=== PATIENT | female | born 1930 | race Caucasian/White ===

== ENCOUNTER 2018-09-15 15:17 | Inpatient (IN) | payer BC, MEDICARE ==
[2018-09-15 15:33] LABS: #Eosinphils 0.1 thou/uL (0.0-0.7); #Lymphocytes 1.6 thou/uL (1.20-3.40); #Monocytes 0.6 thou/uL (0.11-0.59); %Basophils 0.1 % (0.0-1.0); %Eosinophils 1.2 % (0.0-10.0); %Lymphocytes 30.7 % (21.0-51.0); %Monocytes 10.7 % (0.0-10.0); %Neutrophils 57.3 % (42.0-75.0); Hemoglobin 11.2 g/dL (12.0-16.0); Mean Corpuscular HGB CONC 32.1 g/dL (32.0-36.0); Mean Corpuscular Hemoglobin 29.5 pg (27.0-31.0); Mean Corpuscular Volume 91.8 fL (78.0-98.0); Mean Platelet Volume 8.9 fL (7.4-10.4); Platelet Count 128 thou/uL (130-400); RBC Distribution Width 12.2 % (11.5-14.5); White Blood Cell (WBC) Count 5.2 thou/uL (4.8-10.8)
[2018-09-15 15:39] LABS: INR-International Normal Ratio 1.4; PTT 29.2 SEC (22.9-36.1); Prothrombin Time 16.7 SEC (12.0-14.7)
[2018-09-15] MEDS ORDERED: Heparin 10,000 UNITS/1 ML VIAL ONE (15:45)
[2018-09-15] MEDS ORDERED: Iopamidol 370 76% 50 ML VIAL FS ONE (15:47)
[2018-09-15] MEDS ORDERED: Iopamidol 370 76% 100 ML VIAL ONE (15:47)
[2018-09-15 15:54] LABS: Anion Gap 12 mmol/L (10-20); BUN (Urea Nitrogen) 10 mg/dL (9.8-20.1); Calc. Creatinine Clearance 0 mL/min (70-130); Carbon Dioxide 20 mmol/L (23-31); Chloride 110 mmol/L (98-107); Estimated GFR-MDRD 61; Potassium 3.4 mmol/L (3.5-5.1); Sodium 139 mmol/L (136-145)
[2018-09-15 15:55] LABS: ALT (SGPT) 11 U/L (8-55); AST (SGOT) 16 U/L (5-34); Albumin 3.2 g/dL (3.4-4.8); Alkaline Phosphatase 60 U/L (40-150); Bilirubin, Total 0.7 mg/dL (0.2-1.2); Calcium 8.3 mg/dL (7.8-10.44); Globulin 1.8 g/dL (2.4-3.5); Glucose 116 mg/dL (83-110)
[2018-09-15] MEDS ORDERED: Ondansetron PF 4 MG/2 ML Vial ONE ×2 (16:00→17:08)
[2018-09-15] MEDS ORDERED: DOPamine 400 MG/D5W 250 ML 250 ML ONE (16:02)
[2018-09-15] MEDS ORDERED: Clopidogrel Bisulfate 300 MG TAB ONE (16:02)
[2018-09-15] MEDS ORDERED: Adenosine 6 MG/2 ML VIAL ONE (16:03)
[2018-09-15] MEDS ORDERED: Verapamil 5 MG/2 ML VIAL ONE (16:03)
[2018-09-15] MEDS ORDERED: Nitroglycerin 100MG/250ML BOT 250 ML ONE (16:04)
[2018-09-15] MEDS ORDERED: Amiodarone 150 MG/3 ML VIAL ONE (16:14)
--- NOTE | 2018-09-15 16:31 | RAD ---
ONE VIEW CHEST: 09/15/18 COMPARISON: 09/06/07. HISTORY: STEMI. FINDINGS: There is atherosclerosis of the aorta. Upper normal cardiac silhouette. Pulmonary vessels and hilum are normal. Costophrenic angles are clear. No masses or consolidation. No pneumothorax or osseous abn ormalities. IMPRESSION: 1. Atherosclerosis. 2. Upper normal cardiac silhouette. POS: [facility]
[2018-09-15] MEDS ORDERED: traMADol HCl 50 MG TAB PO PRN (16:40)
[2018-09-15] MEDS ORDERED: Acetaminophen/Codeine 30-300mg Tablet PO PRN (16:40)
[2018-09-15] MEDS ORDERED: Milk Of Magnesia 30 ML UDCUP PO PRN (16:40)
[2018-09-15] MEDS ORDERED: Clopidogrel Bisulfate 300 MG TAB PO SCH (16:45)
[2018-09-15] MEDS ORDERED: Sodium Chloride 0.9% 1,000 ML IV SCH (16:45)
[2018-09-15] MEDS ORDERED: Lidocaine 1% (PF) 30 ML VIAL ONE (17:08)
[2018-09-15 17:35] VITALS: BMI 24.2
[2018-09-15] MEDS ORDERED: DOPamine 400 MG/D5W 250 ML 250 ML IVPB SCH ×2 (19:15→22:45)
[2018-09-15] MEDS: Atorvastatin Calcium 40 MG TAB PO SCH (20:32)
[2018-09-15] MEDS ORDERED: cloNIDine 0.1 MG TAB PO PRN (22:27)
[2018-09-15] MEDS ORDERED: Amlodipine 5 MG TAB PO SCH (22:30)
[2018-09-15] MEDS ORDERED: Aspirin Chewable 81 MG TAB PO SCH (22:45)
[2018-09-16 04:13] LABS: #Lymphocytes 0.8 thou/uL (1.20-3.40); #Monocytes 0.4 thou/uL (0.11-0.59); #Neutrophils 4.3 thou/uL (1.40-6.50); %Basophils 0.2 % (0.0-1.0); %Eosinophils 0.1 % (0.0-10.0); %Monocytes 7.5 % (0.0-10.0); %Neutrophils 78.2 % (42.0-75.0); Hemoglobin 11.3 g/dL (12.0-16.0); Mean Corpuscular HGB CONC 32.5 g/dL (32.0-36.0); Mean Corpuscular Hemoglobin 29.8 pg (27.0-31.0); Mean Corpuscular Volume 91.8 fL (78.0-98.0); Mean Platelet Volume 9.3 fL (7.4-10.4); Platelet Count 123 thou/uL (130-400); RBC Distribution Width 12.2 % (11.5-14.5); Red Blood Cell (RBC) Count 3.78 mill/uL (4.20-5.40); White Blood Cell (WBC) Count 5.5 thou/uL (4.8-10.8)
[2018-09-16 04:32] LABS: ALT (SGPT) 66 U/L (8-55); AST (SGOT) 88 U/L (5-34); Albumin 3.4 g/dL (3.4-4.8); Alkaline Phosphatase 78 U/L (40-150); Anion Gap 12 mmol/L (10-20); BUN (Urea Nitrogen) 10 mg/dL (9.8-20.1); Bilirubin, Total 0.8 mg/dL (0.2-1.2); Calc. Creatinine Clearance 51 mL/min (70-130); Calcium 8.6 mg/dL (7.8-10.44); Carbon Dioxide 22 mmol/L (23-31); Chloride 108 mmol/L (98-107); Estimated GFR-MDRD 69; Globulin 1.9 g/dL (2.4-3.5); Glucose 93 mg/dL (83-110); Protein, Total 5.3 g/dL (6.0-8.3); Sodium 138 mmol/L (136-145)
--- NOTE | 2018-09-16 08:08 | PDOC.CTH ---
Cardiology Progress Note - Subjective Doing well. No current complaints. Pt is NSR. - Objective Vital Signs Temp Pulse BP 09/16/18 04:00 98.1 F 09/16/18 00:00 97.6 F 09/15/18 22:39 57 L 159/69 H Weight 136 lb 10.986 oz 09/15/18 09/16/18 09/17/18 06:59 06:59 06:59 Intake Total 480 480 Output Total 1440 35 Balance -960 445 - Physical Examination General/Neuro: alert & oriented x3, NAD Neck: carotid US brisk, no JVD present Lungs: CTA, unlabored respirations Heart: PMI normal, RRR Abdomen: NT/ND, soft Extremities: + femoral B - Telemetry Telemetry Rhythm: SR - Labs Result Diagrams: 09/16/18 03:45 09/16/18 03:45 Troponin/CKMB Troponin I Less than 0.010 ng/mL (< 0.028) 09/15/18 15:22 - Assessment/Plan AMI CAD s/p stent to RCA afib hypotension Improved BP stable Not pacer dependent; will remove d/c central line and arterial lines Transfer to floor after BR
--- NOTE | 2018-09-16 10:24 | CON ---
DATE OF CONSULTATION: 09/16/2018 CONSULTING PHYSICIAN: Carter Dugan MD. REASON FOR CONSULTATION: ICU protocol. Following encompassed 50 minutes of time, of that time, greater than 50% spent with the patient and/or on the patient's unit in the hospital. HISTORY OF PRESENT ILLNESS: The patient is an 87-year-old female, who was apparently sitting on a bench at [employer] yesterday when she passed out. She was brought into the ER hypotensive. I think there were also some issues with bradycardia. She was taken to the label stitcher with the presumptive diagnosis of a myocardial infarction. She had a cardiac catheterization and stent placed. She also had a transvenous pacemaker placed. Currently, she is lying in bed quietly. She has no acute complaints. She is no longer having chest pain. She has no shortness of breath. PAST MEDICAL HISTORY: 1. Coronary artery disease. 2. Hypertension. PAST SURGICAL HISTORY: Cardiac catheterization. SOCIAL HISTORY: Nonsmoker. Does not consume alcohol. ALLERGIES: SHE DENIED ANY ALLERGIES TO ME, BUT AN ER NOTE INDICATES THAT SHE MAYBE ALLERGIC TO PENICILLIN. FAMILY MEDICAL HISTORY: Unremarkable. MEDICATIONS: Prior to admission, she takes some type of antihypertensive at home, but does not know what would it is. Current inpatient medications; 1. Tylenol No.3. 2. Lipitor. 3. Catapres. 4. Dopamine. 5. Tramadol. REVIEW OF SYSTEMS: Twelve-point review of systems is otherwise negative. PHYSICAL EXAMINATION: VITAL SIGNS: Temperature 98.1, pulse 68, blood pressure 121/43, O2 saturation 98%. GENERAL: She awakens easily. She is alert. She is in no distress. HEENT: Pupils are reactive. Sclerae anicteric. Oropharynx is clear. NECK: No bruits. No thyromegaly. LUNGS: Clear to auscultation without wheezing or rhonchi. CARDIAC: S1 and S2 regular without audible murmur. ABDOMEN: Soft, nontender to palpation. EXTREMITIES: She has a right groin introducer and arterial line in place. EXTREMITIES: No clubbing, cyanosis, or edema. LABORATORY DATA: Sodium 138, potassium 4, chloride 108, CO2 of 22, BUN 10, creatinine 0.7, glucose 93, AST 88, ALT 66. White blood cell count 5.5, hemoglobin 11, hematocrit 34.8, and platelet count 123. ASSESSMENT: 1. Myocardial infarction. 2. Status post symptomatic bradycardia. 3. Hypertension. PLAN: She has a stable Pulmonary Critical Care status at this time. I would assume her arterial line. A transvenous pacer will be removed later today. I do not see anything to add to her excellent care. We will be available for care as needed. Job ID: [id number]
[2018-09-16] MEDS ORDERED: Hydrocortisone Sod Succ/PF 100 mg/2 ml Vial IVP SCH (13:45)
[2018-09-16] MEDS: diphenhydrAMINE 25 MG CAP PO PRN (16:26)
--- NOTE | 2018-09-16 17:01 | EKG ---
Test Reason : Blood Pressure : / mmHG Vent. Rate : 051 BPM Atrial Rate : 227 BPM P-R Int : 000 ms QRS Dur : 092 ms QT Int : 466 ms P-R-T Axes : 000 023 115 degrees QTc Int : 429 ms Atrial fibrillation with slow ventricular response with premature ventricular or aberrantly conducted complexes ST elevation consider inferior injury or acute infarct * ACUTE OR * Consider right ventricular involvement in acute inferior infarct Abnormal ECG Confirmed by HOMERO BLACKBURN, ASHELY ([id number]), publications editor MICHELLE GTZ ([id number]) on 09/16/2018 5:01:09 PM Referred By: Confirmed By:ASHELY VALENTIN MD
[2018-09-16] MEDS: Atorvastatin Calcium 40 MG TAB PO SCH (20:33)
[2018-09-17] MEDS ORDERED: Acetaminophen/Codeine 30-300mg Tablet PO PRN (07:56)
[2018-09-17] MEDS ORDERED: Zolpidem Tartrate 5 MG TAB PO PRN (07:56)
[2018-09-17] MEDS ORDERED: Nitroglycerin 0.4 MG TAB (25 Tab Bottle) SL PRN (07:56)
[2018-09-17] MEDS ORDERED: Milk Of Magnesia 30 ML UDCUP PO PRN (07:56)
[2018-09-17] MEDS ORDERED: cloNIDine 0.1 MG TAB PO PRN (07:56)
[2018-09-17] MEDS ORDERED: Morphine 2 MG/ML SYRINGE SLOW IVP PRN (08:13)
[2018-09-17] MEDS ORDERED: Carvedilol 6.25 MG TAB PO SCH (09:00)
[2018-09-17] MEDS: Aspirin 81 mg Enteric Coated Tablet PO SCH (09:13)
[2018-09-17] MEDS: Clopidogrel Bisulfate 75 MG TAB PO SCH (09:14)
[2018-09-17] MEDS: Lisinopril 2.5 MG TAB PO SCH (09:14)
[2018-09-17] MEDS: Carvedilol 3.125 MG TAB PO SCH ×2 (09:14→20:06)
--- NOTE | 2018-09-17 11:49 | PDOC.CTH ---
Cardiology Progress Note - Subjective Patient with c/o significant chest wall pain with coughing. No pain at rest. No SOB. Daughter mentions she's tired from cardiac rehab and being up to chair. - Objective Vital Signs Temp Pulse Resp BP Pulse Ox 09/17/18 07:42 98.4 F 72 18 150/65 H 94 L 09/17/18 04:00 98.6 F 75 18 150/65 H 96 Weight 147 lb 4.301 oz 09/16/18 09/17/18 09/18/18 06:59 06:59 06:59 Intake Total 480 1710 Output Total 1440 965 Balance -960 745 - Physical Examination General/Neuro: alert & oriented x3 Neck: no JVD present Lungs: CTA Heart: RRR Abdomen: NT/ND Extremities: other: (no edema) - Telemetry Telemetry Rhythm: SR; pSVT - Labs Result Diagrams: 09/16/18 03:45 09/16/18 03:45 Troponin/CKMB Troponin I Less than 0.010 ng/mL (< 0.028) 09/15/18 15:22 - Assessment/Plan 1. s/p acute inferior STEMI 2. s/p PCI/DCS-RCA 3. CAD 4. Paroxysmal AF 5. VT/VF? during PCI (s/p Amio and multiple defibs) 6. PSVT Stable. Coreg started today. Will monitor SVT on bblockers. Morphine PRN chest wall pain. Continue rehab. On Plavix/ASA/statin/bblocker. EF 50-55% on ECHO with inferior wall hypokinesis.
[2018-09-17] MEDS: diphenhydrAMINE 25 MG CAP PO PRN (20:05)
[2018-09-17] MEDS: Atorvastatin Calcium 40 MG TAB PO SCH (20:05)
[2018-09-18 05:45] LABS: ALT (SGPT) 36 U/L (8-55); AST (SGOT) 35 U/L (5-34); Alkaline Phosphatase 66 U/L (40-150); Anion Gap 9 mmol/L (10-20); BUN (Urea Nitrogen) 13 mg/dL (9.8-20.1); Bilirubin, Total 0.9 mg/dL (0.2-1.2); Calc. Creatinine Clearance 45 mL/min (70-130); Calcium 8.5 mg/dL (7.8-10.44); Carbon Dioxide 24 mmol/L (23-31); Chloride 106 mmol/L (98-107); Estimated GFR-MDRD 57; Glucose 97 mg/dL (83-110); Sodium 135 mmol/L (136-145)
[2018-09-18 05:46] LABS: #Eosinphils 0.6 thou/uL (0.0-0.7); #Lymphocytes 0.6 thou/uL (1.20-3.40); #Monocytes 0.3 thou/uL (0.11-0.59); #Neutrophils 8.2 thou/uL (1.40-6.50); %Basophils 0.1 % (0.0-1.0); %Eosinophils 6.2 % (0.0-10.0); %Lymphocytes 6.5 % (21.0-51.0); %Monocytes 2.8 % (0.0-10.0); %Neutrophils 84.3 % (42.0-75.0); Mean Corpuscular HGB CONC 32.8 g/dL (32.0-36.0); Mean Corpuscular Hemoglobin 30.1 pg (27.0-31.0); Mean Corpuscular Volume 91.8 fL (78.0-98.0); Mean Platelet Volume 9.5 fL (7.4-10.4); Platelet Count 127 thou/uL (130-400); RBC Distribution Width 12.4 % (11.5-14.5); Red Blood Cell (RBC) Count 3.99 mill/uL (4.20-5.40); White Blood Cell (WBC) Count 9.7 thou/uL (4.8-10.8)
[2018-09-18] MEDS: Lisinopril 2.5 MG TAB PO SCH (09:48)
[2018-09-18] MEDS: Aspirin 81 mg Enteric Coated Tablet PO SCH (09:48)
[2018-09-18] MEDS: Clopidogrel Bisulfate 75 MG TAB PO SCH (09:48)
[2018-09-18] MEDS: Carvedilol 3.125 MG TAB PO SCH (09:48)
[2018-09-18 12:00] VITALS: TEMP 97.6
--- NOTE | 2018-09-18 13:41 | HP ---
DATE OF CONSULTATION: 09/15/2018 CHIEF COMPLAINT: Acute [place]. HISTORY OF PRESENT ILLNESS: Ms. Edwards is an 87-year-old woman with limited history. The patient had a syncopal episode at [facility]. She was brought by EMS. She was found to have significant ST-segment elevation. She appears weak. Heart rate in the 20s and 30s. PAST MEDICAL HISTORY: 1. CAD, status post bypass surgery, previous angio in 2010 with occluded vein graft to the right coronary artery, OM and, diagonal branch, patent RYAN to the LAD, and patent stent to the right coronary artery. She also had a complete occluded chronic subtotaled OM branch with 70% stenosis in the LAD. 2. Paroxysmal atrial fibrillation. 3. Hypertension. ALLERGIES: UNKNOWN. HOME MEDICATIONS: Unknown. SOCIAL HISTORY: No current tobacco or alcohol use. REVIEW OF SYSTEMS: Difficult to obtain. PHYSICAL EXAMINATION: GENERAL: The patient is a pleasant 87-year-old, who is in no acute distress. The patient appears their stated age. She does appear weak with mild chest discomfort. VITAL SIGNS: Blood pressure 110/70, pulse 20s to 40s, and respirations 20. NEUROLOGIC: The patient is alert and oriented x3 with no focal neurologic deficits. HEENT: Sclerae without icterus. Mouth has moist mucous membranes with normal pallor. NECK: No JVD. Carotid upstroke brisk. No bruits bilaterally. LUNGS: Clear to auscultation with unlabored respirations. BACK: No scoliosis or kyphosis. CARDIAC: Regular rate and rhythm with normal S1 and S2. No S3 or S4 noted. No significant rubs, murmurs, thrills, or gallops noted throughout the precordium. PMI is not displaced. There is no parasternal heave. ABDOMEN: Soft, nontender, nondistended. No peritoneal signs present. No hepatosplenomegaly. No abnormal striae. EXTREMITIES: 2+ femoral and 2+ dorsalis pedis pulses. No cyanosis, clubbing, or edema. SKIN: No gross abnormalities. DIAGNOSTIC STUDIES: EKG shows inferior ST-segment elevation. IMPRESSION: 1. Acute myocardial infarction. 2. Syncope. 3. Atrial fibrillation with slow ventricular response. RECOMMENDATIONS: At this point, given her slow ventricular response in addition to marked ST-segment elevation, we recommend urgent coronary angiography. I discussed procedure in full detail with Ms. Edwards. The risks included but not limited to the following: , stroke, [place], need for emergency surgery, loss of limb, bleeding, and infection, as well as a reaction to the dye causing kidney failure and needing long-term dialysis. Other risks include acute stent thrombosis and restenosis, vessel dissection, perforation, need for emergency surgery in addition to distal embolization causing chronic foot discomfort as well as amputation. insert the left heart. All questions were answered. I also discussed drug-coated versus nondrug-coated stent placement. We would recommend drug-coated stent placement given the above. She is amenable. No family was present. We will also place a temporary pacemaker prior to the procedure due to significant bradycardia. Further recommendations pending the above. Job ID: [id number]
[2018-09-18] MEDS: diphenhydrAMINE 25 MG CAP PO PRN (13:52)
--- NOTE | 2018-09-18 14:17 | DIS ---
DATE OF ADMISSION: 09/15/2018 DATE OF DISCHARGE: 09/18/2018 DISCHARGE DIAGNOSIS: Acute myocardial infarction. PROCEDURES PERFORMED: 1. Angiography. 2. Cardioversion x3. 3. Temporary pacemaker. 4. Central line placement. HOSPITAL COURSE: Ms. Edwards is a very pleasant 87-year-old woman, who has a previous history of CAD, status post bypass surgery. She recently presented with a syncope and acute myocardial infarction. She underwent a successful stent placement to the right coronary artery with a 3 x 20 mm drug-coated stent. She did have a ventricular fibrillation x3 during the procedure. She also was hypotensive requiring pressors. After revascularization, this improved after several hours. She was seen in bed in the ICU overnight. She did very well and transferred to telemetry monitoring. While on telemetry monitoring, she did have a reaction likely to contrast. After discussing further with the patient and family, it appears she had a contrast reaction in the past, but was failed to mention upon arrival. The patient had been seen at [facility] in 2010. She received Benadryl and symptoms were improving. She does also have a history of paroxysmal atrial fibrillation and is on Coumadin. This will be resumed. DISCHARGE MEDICATIONS: Include; 1. Coumadin as prescribed. 2. Fosamax. 3. Nitroglycerin p.r.n. 4. Metoprolol 25 mg b.i.d. 5. Levothyroxine. 6. Isosorbide 30 mg daily. 7. Lasix 20 daily. 8. Aspirin 81 q.a.m. 9. Atorvastatin 40 mg daily. 10. Plavix 75 daily. 11. Benadryl q.6 hours for five days p.r.n. itching. PLAN: I did discuss the case with Dr. Darek Lim, her primary group exercise instructor. I did state that I would recommend she restart her Coumadin till INR is between 2 and 3, and once it is up to 2 to 3, we would recommend stopping aspirin. Follow up Dr. Darek Lim in 1 week. Job ID: [id number]
[2018-09-18 15:31] VITALS: BP 143/64
--- NOTE | 2018-09-18 17:02 | EKG ---
Test Reason : Blood Pressure : / mmHG Vent. Rate : 063 BPM Atrial Rate : 063 BPM P-R Int : 192 ms QRS Dur : 086 ms QT Int : 442 ms P-R-T Axes : 074 003 110 degrees QTc Int : 452 ms Normal sinus rhythm Inferior infarct (cited on or before 07-SEP-2007) Abnormal ECG Confirmed by DANICA MONGE ([id number]) on 09/18/2018 5:01:48 PM Referred By: BRIANNE Confirmed By:DANICA MONGE
--- NOTE | 2018-09-18 17:05 | EKG ---
Test Reason : ROUTINE Blood Pressure : / mmHG Vent. Rate : 059 BPM Atrial Rate : 059 BPM P-R Int : 182 ms QRS Dur : 082 ms QT Int : 460 ms P-R-T Axes : 070 013 063 degrees QTc Int : 455 ms Sinus bradycardia Nonspecific T wave abnormality Abnormal ECG Confirmed by DANICA MONGE ([id number]) on 09/18/2018 5:05:41 PM Referred By: BRIANNE Confirmed By:DANICA MONGE
--- NOTE | 2018-09-18 17:09 | EKG ---
Test Reason : Blood Pressure : / mmHG Vent. Rate : 079 BPM Atrial Rate : 079 BPM P-R Int : 162 ms QRS Dur : 094 ms QT Int : 400 ms P-R-T Axes : 056 017 -40 degrees QTc Int : 458 ms Normal sinus rhythm Cannot rule out Inferior infarct , age undetermined Abnormal ECG Confirmed by DANICA MONGE ([id number]) on 09/18/2018 5:09:34 PM Referred By: BRIANNE Confirmed By:DANICA MONGE
== END 2018-09-18 15:39 | disposition home or self-care (01) | DRG 247 ==
LOC: ERS 15:17 → CCL 15:40 → CCU 15:45 → 2NO 09-16 12:26
PROVIDERS: ADMIT Internal Medicine Cardiovascular Disease; ATTEND Internal Medicine Cardiovascular Disease
PROC: 027034Z Dilation of Coronary Artery, One Artery with Drug-eluting Intraluminal Device, Percutaneous Approach (ICD-10-PCS; principal; 2018-09-15)
PROC: 4A023N7 Measurement of Cardiac Sampling and Pressure, Left Heart, Percutaneous Approach (ICD-10-PCS; 2018-09-15)
PROC: 02HV33Z Insertion of Infusion Device into Superior Vena Cava, Percutaneous Approach (ICD-10-PCS; 2018-09-15)
PROC: 5A2204Z Restoration of Cardiac Rhythm, Single (ICD-10-PCS; 2018-09-15)
PROC: 5A1213Z Performance of Cardiac Pacing, Intermittent (ICD-10-PCS; 2018-09-15)
PROC: B2111ZZ Fluoroscopy of Multiple Coronary Arteries using Low Osmolar Contrast (ICD-10-PCS; 2018-09-15)
DX: I21.9 Acute myocardial infarction, unspecified (principal); I47.1 Supraventricular tachycardia; I25.10 Atherosclerotic heart disease of native coronary artery without angina pectoris; R00.1 Bradycardia, unspecified; I48.0 Paroxysmal atrial fibrillation; I10 Essential (primary) hypertension; I95.9 Hypotension, unspecified; Z79.01 Long term (current) use of anticoagulants; Z88.0 Allergy status to penicillin; Z91.041 Radiographic dye allergy status
CPT/HCPCS: 33210; 36415; 71045; 76942; 80053; 84484; 85025; 85347; 85610; 85730; 92933; 93005; 93010; 93306; 93455; 93567; 93798; C1725; C1769; C1874; C1887; C9602; J0153; J0282; J1265; J1644; J1720; J2001; J2405; Q0163; Q9967

== ENCOUNTER 2018-09-23 04:17 | Observation (INO) | payer MEDICARE ==
[2018-09-23 04:45] LABS: #Eosinphils 0.2 thou/uL (0.0-0.7); #Lymphocytes 2.1 thou/uL (1.20-3.40); #Monocytes 0.5 thou/uL (0.11-0.59); %Basophils 0.7 % (0.0-1.0); %Eosinophils 3.8 % (0.0-10.0); %Lymphocytes 35.7 % (21.0-51.0); %Monocytes 8.6 % (0.0-10.0); %Neutrophils 51.3 % (42.0-75.0); Hemoglobin 13.5 g/dL (12.0-16.0); Mean Corpuscular HGB CONC 33.1 g/dL (32.0-36.0); Mean Corpuscular Hemoglobin 30.3 pg (27.0-31.0); Mean Corpuscular Volume 91.7 fL (78.0-98.0); Mean Platelet Volume 8.8 fL (7.4-10.4); Platelet Count 168 thou/uL (130-400); RBC Distribution Width 12.5 % (11.5-14.5); Red Blood Cell (RBC) Count 4.46 mill/uL (4.20-5.40); White Blood Cell (WBC) Count 5.8 thou/uL (4.8-10.8)
[2018-09-23 05:01] LABS: ALT (SGPT) 26 U/L (8-55); AST (SGOT) 27 U/L (5-34); Albumin 4.1 g/dL (3.4-4.8); Alkaline Phosphatase 79 U/L (40-150); Anion Gap 14 mmol/L (10-20); BUN (Urea Nitrogen) 16 mg/dL (9.8-20.1); Bilirubin, Total 0.6 mg/dL (0.2-1.2); CK (CPK) 51 U/L (29-168); Calc. Creatinine Clearance 0 mL/min (70-130); Calcium 9.5 mg/dL (7.8-10.44); Carbon Dioxide 25 mmol/L (23-31); Chloride 102 mmol/L (98-107); Estimated GFR-MDRD 62; Globulin 2.2 g/dL (2.4-3.5); Glucose 100 mg/dL (83-110); Potassium 3.9 mmol/L (3.5-5.1); Protein, Total 6.3 g/dL (6.0-8.3); Sodium 137 mmol/L (136-145)
[2018-09-23 05:32] LABS: CKMB 1.8 ng/mL (0-6.6)
[2018-09-23] MEDS ORDERED: Aspirin Chewable 81 MG TAB ONE (05:33)
[2018-09-23 07:29] VITALS: BMI 22.4
[2018-09-23 08:36] LABS: Troponin I 0.061 ng/mL (< 0.028)
[2018-09-23] MEDS ORDERED: Acetaminophen 325 MG TAB PO PRN (09:01)
[2018-09-23 09:05] LABS: INR-International Normal Ratio 1.2; PTT 30.3 SEC (22.9-36.1); Prothrombin Time 15.6 SEC (12.0-14.7)
[2018-09-23] MEDS ORDERED: diphenhydrAMINE 25 MG CAP PO PRN (10:17)
[2018-09-23] MEDS ORDERED: Warfarin Sodium 5 MG TAB PO SCH ×3 (10:30→18:30)
--- NOTE | 2018-09-23 10:37 | RAD ---
PORTABLE CHEST: HISTORY: Chest pain with left arm weakness. COMPARISON: 09/15/2018 study. FINDINGS: Heart size is enlarged. There are postop sternotomy changes. The lungs show some chronic change. N o focal infiltrates or signs of failure. IMPRESSION: Cardiomegaly. POS: [facility]
[2018-09-23 10:55] LABS: Troponin I 0.057 ng/mL (< 0.028)
[2018-09-23] MEDS ORDERED: Furosemide 20 MG TAB PO SCH (11:45)
[2018-09-23] MEDS ORDERED: Clopidogrel Bisulfate 75 MG TAB PO SCH (11:45)
--- NOTE | 2018-09-23 12:19 | HP ---
PRIMARY CARE PHYSICIAN: Dr. Leger. CHIEF COMPLAINT: Ms. Edwards is an 88-year-old female, who reported to the emergency room earlier this morning for evaluation of irregular heartbeat and crushing chest pain. The patient is not a great historian. Reports that she woke up with some, what she describes as crushing chest pain, thought she was going to and asked her daughter to bring her to the hospital. She was unable to give me any other history. Daughter is not currently at the bedside. The patient was discharged from here on 09/18/2018 five days ago after experiencing an acute myocardial infarction. She had a cardiac cath with a drug-coated stent to the right coronary artery. She did have ventricular fibrillation x3 during the procedure, and during the catheterization was hypotensive and required pressors. She was placed in ICU overnight, did well and was transferred to telemetry the next day. She had a reaction to contrast. After some Benadryl, this did improve. She also has a history of paroxysmal atrial fibrillation and is on Coumadin and this was restarted. EKG in the emergency room showed normal sinus rhythm with beats per minute 66, no ectopics. Did display some left atrial enlargement. Troponins x3 0.061, 0.061, 0.057. She is admitted to the observation unit for further management. PAST MEDICAL HISTORY: 1. Coronary artery disease, status post bypass surgery; previous angio in 2010 with an occluded vein graft to the right coronary artery at the OM diagonal branch, patent RYAN to the LAD, and patent stent to the right coronary artery. She also had a complete occluded chronic subtotal OM branch with 70% stenosis in the LAD. 2. Paroxysmal atrial fibrillation. 3. Hypertension. ALLERGIES: LISTED ATORVASTATIN, CIPRO, DOXYCYCLINE, CONTRAST MEDIA, PENICILLINS. CURRENT MEDICATIONS: 1. Fosamax 70 mg p.o. q.7 days. 2. Lasix 20 mg p.o. daily. 3. Isosorbide 30 mg p.o. daily. 4. Levothyroxine 1000 mcg p.o. daily. 5. Metoprolol 25 mg p.o. b.i.d. 6. Nitrostat 0.4 mg sublingual q.5 minutes. 7. Pravastatin 40 mg p.o. at bedtime. 8. Coumadin 2.5 mg p.o. on Fridays, 5 mg p.o. every other day of the week. 9. Aspirin 81 mg p.o. daily. 10. Plavix 75 mg p.o. daily. 11. Benadryl 25 mg p.o. every 6 hours as needed. REVIEW OF SYSTEMS: The patient reports chest pain, left arm pain, numbness. Denies shortness of breath, diaphoresis, fever, or chills. All other systems reviewed and are negative unless mentioned in the HPI. PAST MEDICAL HISTORY: Myocardial infarction in 2001, also 7 days ago, total of three MIs per daughter's report, and hypertension. PAST SURGICAL HISTORY: CABG x4, has had 4 heart catheterizations. PSYCHIATRIC HISTORY: None. SOCIAL HISTORY: Denies any alcohol or drug use. No smoking history. PHYSICAL EXAMINATION: VITAL SIGNS: Blood pressure is 147/79, pulse is 62, respirations are 18, PO2 sats are 96% on room air. CONSTITUTIONAL: The patient appears nontoxic, is pain free. She is alert and oriented to person, place, and time. HEENT: Head is atraumatic and normocephalic. Eyes; eyelids are normal to inspection. Pupils equally round and reactive to light. ENT, mucous membranes are moist. Trachea is midline. RESPIRATORY/CHEST: Breath sounds are clear. Chest movement is symmetrical. CARDIOVASCULAR: Heart sounds are normal. No murmurs are heard. ABDOMEN: Nontender on palpation. Bowel sounds are heard. BACK: Normal range of motion. No CVA tenderness. EXTREMITIES: Upper extremity, normal range of motion. Normal inspection. No edema. Radial pulses equal. Lower extremity, normal range of motion. Motor strength is normal. Sensation intact. Pedal pulses are normal. NEUROLOGIC: The patient is oriented to person, place, and time. Speech is normal. SKIN: Warm and dry. Normal in color. PSYCH: She is oriented to person, place, and time. ASSESSMENT AND PLAN: 1. Chest pain with recent myocardial infarction and stent placement. She is on Plavix and Coumadin. INR is currently subtherapeutic. We will restart the Coumadin. We will ask Dr. Williamson, who is on-call this weekend to review labs, EKG, and we appreciate his suggestions. The patient with a significant cardiac history and a recent stent placement and with NH. 2. Hypertension. We will restart home medications. 3. Hyperlipidemia. We will restart home medications. 4. Hypothyroidism. We will restart her Synthroid. 5. Hospital course is dependent on clinical findings. Job ID: [id number]
[2018-09-23] MEDS: Pravastatin Sodium 40 MG TAB PO SCH (20:46)
[2018-09-23] MEDS: Famotidine 20 MG TAB PO SCH (20:46)
[2018-09-23] MEDS: Metoprolol Tartrate 25 MG TAB PO SCH (20:47)
[2018-09-24] MEDS: Levothyroxine Sodium 100 MCG TAB PO SCH (05:36)
[2018-09-24 06:12] LABS: #Basophils 0.1 thou/uL (0.0-0.2); #Eosinphils 0.2 thou/uL (0.0-0.7); #Lymphocytes 1.9 thou/uL (1.20-3.40); #Monocytes 0.4 thou/uL (0.11-0.59); #Neutrophils 3.4 thou/uL (1.40-6.50); %Basophils 1.6 % (0.0-1.0); %Eosinophils 2.8 % (0.0-10.0); %Lymphocytes 32.4 % (21.0-51.0); %Monocytes 6.4 % (0.0-10.0); %Neutrophils 56.9 % (42.0-75.0); Hemoglobin 14.3 g/dL (12.0-16.0); Mean Corpuscular HGB CONC 32.7 g/dL (32.0-36.0); Mean Corpuscular Hemoglobin 29.7 pg (27.0-31.0); Platelet Count 169 thou/uL (130-400); RBC Distribution Width 12.4 % (11.5-14.5); Red Blood Cell (RBC) Count 4.81 mill/uL (4.20-5.40)
[2018-09-24 06:18] LABS: INR-International Normal Ratio 1.4; PTT 28.9 SEC (22.9-36.1); Prothrombin Time 16.6 SEC (12.0-14.7)
[2018-09-24 06:32] LABS: Anion Gap 13 mmol/L (10-20); BUN (Urea Nitrogen) 17 mg/dL (9.8-20.1); Calc. Creatinine Clearance 42 mL/min (70-130); Calcium 9.6 mg/dL (7.8-10.44); Carbon Dioxide 25 mmol/L (23-31); Chloride 102 mmol/L (98-107); Estimated GFR-MDRD 63; Glucose 81 mg/dL (83-110); Potassium 3.7 mmol/L (3.5-5.1); Sodium 136 mmol/L (136-145)
[2018-09-24] MEDS: Clopidogrel Bisulfate 75 MG TAB PO SCH (08:23)
[2018-09-24] MEDS: Metoprolol Tartrate 25 MG TAB PO SCH ×3 (08:23→20:12)
[2018-09-24] MEDS: Famotidine 20 MG TAB PO SCH ×2 (08:23→20:12)
[2018-09-24] MEDS: Furosemide 20 MG TAB PO SCH (08:23)
[2018-09-24] MEDS: Aspirin 81 mg Enteric Coated Tablet PO SCH (08:23)
[2018-09-24] MEDS ORDERED: Enoxaparin Sodium 60 MG/0.6 ML SYRINGE SC SCH (10:00)
[2018-09-24] MEDS: predniSONE 20 MG TAB PO SCH ×3 (11:42→23:43)
[2018-09-24] MEDS ORDERED: diphenhydrAMINE 50 MG CAP PO PRN (12:00)
--- NOTE | 2018-09-24 13:35 | PDOC.PN ---
- Subjective Encounter Start Date: 09/24/18 Encounter Start Time: 12:00 Subjective: Patient examined, denies overnight events -: Denies chest pain today - Objective Vital Signs & Weight: Vital Signs (12 hours) Temp Pulse Resp BP BP Pulse Ox 09/24/18 12:03 95 09/24/18 11:05 97.8 F 65 18 123/61 87 L 09/24/18 08:00 69 18 123/58 L 95 09/24/18 02:14 62 18 162/70 H 94 L Weight Weight 57.289 kg I&O: 09/23/18 09/24/18 09/25/18 06:59 06:59 06:59 Intake Total 960 Output Total 1800 Balance -840 Result Diagrams: 09/24/18 05:50 09/24/18 05:50 Phys Exam - Physical Examination HEENT: PERRLA, moist MMs Neck: no nodes, no JVD Respiratory: clear to auscultation bilateral Cardiovascular: RRR Gastrointestinal: soft, non-tender Musculoskeletal: no edema, pulses present Neurological: non-focal, normal sensation Dx/Plan (1) CAD (coronary artery disease) Code(s): I25.10 - ATHSCL HEART DISEASE OF [place] CORONARY ARTERY W/O ANG PCTRS Status: Chronic (2) Hypothyroidism Code(s): E03.9 - HYPOTHYROIDISM, UNSPECIFIED Status: Chronic (3) Chest pain Code(s): R07.9 - CHEST PAIN, UNSPECIFIED Status: Acute - Plan cont current plan of care Cardiology has been consulted -: Coumadin stopped by Dr. Williamson, INR still below therapeutic level today -: Lovenox given x1 today, possible cardiac cath tomorrow -: NPO after midnight * . Review of Systems - Medications/Allergies Allergies/Adverse Reactions: Allergies Allergy/AdvReac Type Severity Reaction Status Date / Time atorvastatin Allergy Verified 09/23/18 09:02 ciprofloxacin [From Cipro] Allergy Verified 09/23/18 09:02 doxycycline Allergy Verified 09/23/18 09:02 Iodinated Contrast Media Allergy Rash Verified 09/16/18 17:23 Penicillins Allergy Verified 09/15/18 22:36 Medications: Current Medications Acetaminophen (Tylenol) 650 mg PO Q4H PRN PRN Reason: Headache/Fever/Mild Pain (1-3) Aspirin (Ecotrin) 81 mg PO DAILY [facility] Last Admin: 09/24/18 08:23 Dose: 81 mg Clopidogrel Bisulfate (Plavix) 75 mg PO DAILY [facility] Last Admin: 09/24/18 08:23 Dose: 75 mg Diphenhydramine HCl (Benadryl) 50 mg PO Q6H PRN PRN Reason: Allergies Famotidine (Pepcid) 20 mg PO BID [facility] Last Admin: 09/24/18 08:23 Dose: 20 mg Furosemide (Lasix) 20 mg PO DAILY [facility] Last Admin: 09/24/18 08:23 Dose: 20 mg Isosorbide Mononitrate (Imdur Er) 30 mg PO DAILY [facility] Last Admin: 09/24/18 08:37 Dose: 30 mg Levothyroxine Sodium (Synthroid) 100 mcg PO 0600 [facility] Last Admin: 09/24/18 05:36 Dose: 100 mcg Metoprolol Tartrate (Lopressor) 25 mg PO BID [facility] Last Admin: 09/24/18 08:36 Dose: 25 mg Pravastatin Sodium (Pravachol) 40 mg PO HS [facility] Last Admin: 09/23/18 20:46 Dose: 40 mg Prednisone (Prednisone) 20 mg PO Q6HR [facility] Last Admin: 09/24/18 11:42 Dose: 20 mg Sodium Chloride (Flush - Normal Saline) 10 ml IVF PRN PRN PRN Reason: Saline Flush Last Admin: 09/23/18 20:47 Dose: 10 ml
[2018-09-24] MEDS ORDERED: Warfarin Sodium 5 MG TAB PO SCH (17:00)
[2018-09-24] MEDS: Pravastatin Sodium 40 MG TAB PO SCH (20:12)
[2018-09-25 04:54] LABS: INR-International Normal Ratio 1.4; Prothrombin Time 17.4 SEC (12.0-14.7)
[2018-09-25] MEDS: Levothyroxine Sodium 100 MCG TAB PO SCH (05:50)
[2018-09-25] MEDS: predniSONE 20 MG TAB PO SCH ×2 (05:50→11:28)
--- NOTE | 2018-09-25 08:57 | CON ---
DATE OF CONSULTATION: HISTORY OF PRESENT ILLNESS: Colleen Edwards is an 88-year-old white female with long-standing cardiac history. In November 2001, she underwent CABG x4 with RYAN to LAD and saphenous vein grafts to diagonal, obtuse marginal, and right coronary artery. In September 2007, she had abnormal Cardiolite and underwent catheterization by Dr. Pereira. There was a 50% lesion in the proximal LAD. The RYAN to distal LAD was patent; however, the vein grafts to diagonal, obtuse marginal, and right coronary artery were all totally occluded. She underwent placement of Cypher drug-eluting stents, 2.5 x 33 mm and 2.5 x 18 mm in proximal 95% circumflex lesion. The right coronary artery also had a 95% stenosis and was treated with Cypher 2.5 x 18 mm stents. She also underwent catheterization in 2010, and was found to have patent RYAN to the LAD and occluded vein grafts to the diagonal, obtuse marginal, and right coronary artery. There was a patent stent to the right coronary artery. She also had completely occluded obtuse marginal branch, and there was a 70% stenosis in the proximal LAD. She also has a history of paroxysmal atrial fibrillation. On September 15, she was at [facility] and had a syncopal episode. She was brought to the emergency room and was found to have an inferior STEMI as well as atrial fibrillation with heart rates in the 20s and 30s. She was taken emergently to the laborer tan house by Dr. Dugan, and a temporary pacemaker was placed. Again, she was found to have occluded vein grafts, and the RYAN to the LAD was patent. The right coronary artery was totally occluded. She underwent placement of a drug-eluting 3.0 x 20 mm stent. She also had ventricular fibrillation x3 during the procedure. She required pressors afterwards. Afterwards, she appeared to have a contrast reaction with development of rash and was treated with Benadryl. She also apparently had contrast reaction after catheterization in 2010, but failed to mention that. Coumadin was resumed at the time of discharge with the thought of discontinuing aspirin when she was therapeutic on her Coumadin and continuing Plavix. She is an extremely poor historian. She apparently woke early in the morning hours on September 22, with crushing substernal chest pressure. She states it only lasted a few minutes, although the daughter cannot give any additional history in regard to this. She states that it has stopped a long before she came to the emergency room. She also may have felt an irregular heartbeat with that according to other examiners; however, she is uncertain when I asked for that. At the present time, she denies any chest discomfort. PAST MEDICAL HISTORY: Hypercholesterolemia, coronary artery disease, hypertension, and paroxysmal atrial fibrillation. MEDICATIONS: 1. Fosamax 70 mg q.7 days. 2. Aspirin 81 daily. 3. Plavix 75 mg daily. 4. Benadryl 25 mg q.6 hours p.r.n. 5. Lasix 20 q.a.m. 6. Isosorbide mononitrate 30 daily. 7. Synthroid 100 mcg daily. 8. Metoprolol 25 b.i.d. 9. Nitroglycerin p.r.n. 10. Pravastatin 40 at bedtime. 11. Warfarin 5 mg daily. ALLERGIES: 1. ATORVASTATIN. 2. CIPRO. 3. DOXYCYCLINE. 4. IODINE CONTRAST. 5. PENICILLIN. OPERATIONS: CABG. SOCIAL HISTORY: She does not smoke or drink. REVIEW OF SYSTEMS: A 10-point review of systems is otherwise unremarkable. PHYSICAL EXAMINATION: VITAL SIGNS: Blood pressure 123/58, pulse 69. HEENT: PERRL. NECK: Supple. CHEST: Clear. CARDIAC: S1 and S2 normal without any S3, S4, or murmurs. ABDOMEN: Normal bowel sounds without tenderness or organomegaly. EXTREMITIES: Revealed no clubbing, cyanosis, or edema. NEUROLOGIC: Grossly intact. SKIN: Warm and dry. LABORATORY DATA: EKG reveals normal sinus rhythm with inferior infarction, no acute ST-segment changes. CBC is unremarkable. INR 1.4. Sodium 136, potassium 3.7, chloride 102, carbon dioxide 25, BUN 17, creatinine 0.86. Troponin I of 0.061. IMPRESSION: 1. Two-three minutes of crushing chest discomfort that awakened her from sleep. At the time of presentation, it was noted that she stated her heartbeat was irregular, but she does not recall that at this time. Cardiac enzymes have been minimally elevated, it maybe a reflection of her STEMI last week. I do not see any troponin Is after that intervention. 2. Inferior ST-elevation myocardial infarction on September 15, 2018 secondary to closure of the right coronary artery, which was opened and a drug-eluting stent was placed. 3. Status post coronary artery bypass graft x4; however, only the left internal mammary artery to left anterior descending is patent. The vein grafts have been long, occluded-diagonal, obtuse marginal, and right coronary artery. 4. Ejection fraction of 50% to 55% on echocardiogram after inferior STEMI with finding of hypokinesis of the lateral and inferior wall, moderate tricuspid regurgitation, aortic valvular sclerosis, and [id number] aortic regurgitation. 5. History of paroxysmal atrial fibrillation on Coumadin. 6. Hypertension. 7. Hypercholesterolemia. 8. Hypothyroidism. RECOMMENDATIONS: There is no evidence of acute stent thrombosis. There is no ST elevation on EKG, her enzymes are only minimally elevated and her pain only lasted 2 minutes. However, on review of her cath films, I am concerned about lesions in the LAD proximal to the diagonal that appears to be the one that was grafted. The RYAN to the LAD does not feel this area retrograde. Dr. Dugan will see the patient in the morning and make a decision in regard to intervening in this area. In the meantime, I will hold her Coumadin, recheck an INR in the morning and also start her on prednisone and Benadryl for premedication of her dye allergy. DICTATION ENDS HERE Job ID: [id number]
[2018-09-25] MEDS: Clopidogrel Bisulfate 75 MG TAB PO SCH (09:19)
[2018-09-25] MEDS: Famotidine 20 MG TAB PO SCH (09:19)
[2018-09-25] MEDS: Metoprolol Tartrate 25 MG TAB PO SCH (09:19)
[2018-09-25] MEDS: Aspirin 81 mg Enteric Coated Tablet PO SCH (09:19)
[2018-09-25] MEDS: Furosemide 20 MG TAB PO SCH (09:19)
--- NOTE | 2018-09-25 10:55 | PDOC.CTH ---
Cardiology Progress Note - Subjective Doing well. No recurrent CP. Troponin and CKMB negative. - Objective Vital Signs Temp Pulse Resp BP Pulse Ox 09/25/18 07:15 98.7 F 66 18 131/64 97 09/25/18 04:24 97.6 F 64 16 131/61 97 Weight 126 lb 4.8 oz 09/24/18 09/25/18 09/26/18 06:59 06:59 06:59 Intake Total 960 1010 Output Total 1800 300 Balance -840 710 - Physical Examination General/Neuro: alert & oriented x3, NAD Neck: no JVD present Lungs: CTA, unlabored respirations Heart: PMI normal, RRR Abdomen: NT/ND, soft Extremities: + femoral B - Labs Result Diagrams: 09/24/18 05:50 09/24/18 05:50 Troponin/CKMB CK-MB (CK-2) 1.8 ng/mL (0-6.6) 09/23/18 04:33 Troponin I 0.057 ng/mL (< 0.028) H 09/23/18 10:24 - Assessment/Plan CP CAD Recent AK Severe CAD R/B of angio vs meds discussed. Difficult intervention given disease in prox and mid LAD and ?lesion on a bend Lesion noted in 2011 but appears worse although limited views during last angio given AK CKMB negative not reflecting reent AK After R/B discussed, pt opts for meds Increase imdur Consider adding ranexa Lesion likely stable lesion that would cause stable angina Ok for DC wiht op fu
[2018-09-25 12:02] VITALS: BP 109/53; TEMP 97.6
[2018-09-25] MEDS ORDERED: Warfarin Sodium 5 MG TAB PO SCH (17:00)
== END 2018-09-25 13:34 | disposition home or self-care (01) ==
LOC: ERS 04:17 → 2SW 06:55
PROVIDERS: ADMIT Hospitalist; ATTEND Hospitalist
DX: R07.9 Chest pain, unspecified (principal); I21.9 Acute myocardial infarction, unspecified; I10 Essential (primary) hypertension; E78.5 Hyperlipidemia, unspecified; E03.9 Hypothyroidism, unspecified; I25.10 Atherosclerotic heart disease of native coronary artery without angina pectoris; Z79.82 Long term (current) use of aspirin; Z79.899 Other long term (current) drug therapy; Z88.0 Allergy status to penicillin; Z88.1 Allergy status to other antibiotic agents; Z88.8 Allergy status to other drugs, medicaments and biological substances; Z91.041 Radiographic dye allergy status; Z95.1 Presence of aortocoronary bypass graft
CPT/HCPCS: 71045; 80048; 80053; 82550; 82553; 82962; 84484 ×2; 85025 ×2; 85610 ×3; 85730 ×2; 93005; 96372; 97139 ×3; 99285; G0378 ×4; 36415; 36416; J1650; J7512; Q0163

== ENCOUNTER 2018-11-29 03:31 | Inpatient (IN) | payer MEDICARE ==
[2018-11-29 03:53] LABS: #Lymphocytes 1.2 thou/uL (1.20-3.40); #Monocytes 0.3 thou/uL (0.11-0.59); #Neutrophils 2.7 thou/uL (1.40-6.50); %Basophils 0.2 % (0.0-1.0); %Eosinophils 0.5 % (0.0-10.0); %Monocytes 7.6 % (0.0-10.0); %Neutrophils 63.8 % (42.0-75.0); Hemoglobin 7.2 g/dL (12.0-16.0); Mean Corpuscular HGB CONC 33.8 g/dL (32.0-36.0); Mean Corpuscular Hemoglobin 29.9 pg (27.0-31.0); Mean Corpuscular Volume 88.5 fL (78.0-98.0); Platelet Count 127 thou/uL (130-400); RBC Distribution Width 14.5 % (11.5-14.5); Red Blood Cell (RBC) Count 2.41 mill/uL (4.20-5.40); White Blood Cell (WBC) Count 4.3 thou/uL (4.8-10.8)
[2018-11-29] MEDS ORDERED: Diltiazem 125 MG/25 ML ONE (04:00)
[2018-11-29 04:17] LABS: ALT (SGPT) 14 U/L (8-55); AST (SGOT) 20 U/L (5-34); Albumin 3.8 g/dL (3.4-4.8); Alkaline Phosphatase 65 U/L (40-110); Anion Gap 15 mmol/L (10-20); BUN (Urea Nitrogen) 27 mg/dL (9.8-20.1); Bilirubin, Total 0.4 mg/dL (0.2-1.2); Calc. Creatinine Clearance 0 mL/min (70-130); Calcium 8.9 mg/dL (7.8-10.44); Carbon Dioxide 22 mmol/L (23-31); Chloride 103 mmol/L (98-107); Estimated GFR-MDRD 53; Globulin 2.1 g/dL (2.4-3.5); Glucose 146 mg/dL (83-110); Potassium 3.6 mmol/L (3.5-5.1); Protein, Total 5.9 g/dL (6.0-8.3); Sodium 136 mmol/L (136-145)
[2018-11-29 04:54] LABS: Prothrombin Time 70.2 SEC (12.0-14.7)
[2018-11-29 04:56] LABS: INR-International Normal Ratio 8.6
[2018-11-29] MEDS ORDERED: Phytonadione 10 MG/ML AMP PO SCH (05:30)
[2018-11-29 07:08] LABS: Troponin I Less than 0.010 ng/mL (< 0.028)
--- NOTE | 2018-11-29 07:39 | RAD ---
CHEST 1 VIEW: Date: 11/29/18 INDICATION: Generalized weakness. COMPARISON: Prior exam dated 09/23/18. FINDINGS: There is stable cardiomegaly and COPD change. Post CABG change is stable. No pleural effusion or pneu mothorax is evident. No acute osseous abnormality is noted. IMPRESSION: Stable chronic findings. No acute abnormality. POS: BH
[2018-11-29] MEDS ORDERED: Ondansetron ODT 4 MG TAB PO PRN (08:11)
[2018-11-29] MEDS ORDERED: Ondansetron PF 4 MG/2 ML Vial IVP PRN (08:11)
[2018-11-29 08:36] VITALS: BMI 23.8
[2018-11-29 11:22] LABS: Troponin I Less than 0.010 ng/mL (< 0.028)
[2018-11-29] MEDS ORDERED: Senokot S 8.6-50 MG TAB PO PRN (11:55)
[2018-11-29] MEDS ORDERED: Acetaminophen/Codeine 30-300mg Tablet PO PRN (11:55)
[2018-11-29] MEDS ORDERED: Bisacodyl 10 MG SUPP PR PRN (11:55)
[2018-11-29] MEDS ORDERED: Acetaminophen 325 MG TAB PO PRN (11:55)
[2018-11-29] MEDS ORDERED: Guaifenesin DM 100-10/5 ML UDCUP PO PRN (11:55)
[2018-11-29] MEDS ORDERED: Diltiazem 125 MG in Sodium Chloride 0.9% 100 ML IVPB SCH (12:00)
--- NOTE | 2018-11-29 17:48 | HP ---
REASON FOR ADMISSION: Coagulopathy, AFib with RVR, acute blood loss anemia. HISTORY OF PRESENTING ILLNESS: The patient gives history of having bleeding from her left nostril off and on from last 2 days. She also felt dizzy. She could not stand up. This happened yesterday. On Tuesday, the patient also did not feel good and was feeling dizzy. She in fact took 2 tablets of nitroglycerin and apparently passed out for a few seconds. She normally ambulates minimally inside the house without any assistive devices. Around 3:30 this morning, the patient got up and felt dizzy and could not stand up. As this was recurring multiple times at home, the daughter finally brought her to emergency room. Her INR was around 4.4 last week and she was asked to skip Coumadin for 2 days. On arrival here, patient's INR was found to be 8.6, and hemoglobin of 7.2 this morning. She was given a unit of packed cell transfusion and a dose of vitamin K in the ER. Currently, the patient is not actively bleeding anywhere. Not had any black stools per the patient. No chest pain or palpitation. No cough or expectoration at present. She is on Coumadin for AFib. PAST MEDICAL AND SURGICAL HISTORY: 1. History of chronic AFib. 2. Coronary artery disease with the patient had a stent placed to RCA in 09/[address] Dugan. 3. Hypertension. 4. Multivessel coronary artery disease for medical management. 5. Prior history of CABG. 6. Dyslipidemia. 7. Hypothyroidism. PERSONAL HISTORY: Does not abuse alcohol or drugs. No history of smoking. She lives with her daughter. FAMILY HISTORY: Father of MS in his 70s. Mother of natural causes in her 80s. ALLERGIES: ALLERGIC TO ATORVASTATIN, CIPROFLOXACIN, DOXYCYCLINE, IODINE, AND PENICILLIN. CURRENT MEDICATIONS: The patient is on; 1. Tylenol No. 3 p.r.n. 2. Fosamax 70 mg once weekly. 3. Lasix 20 mg p.o. daily. 4. Imdur extended release 15 mg daily. 5. Synthroid 100 mcg daily. 6. Metoprolol tartrate 25 mg twice daily. 7. Pravastatin 40 mg p.o. nightly. 8. CoQ10 of 100 mg daily. 9. Coumadin 2.5 and 5 mg to alternate. 10. Aspirin 81 mg daily. 11. Plavix 75 mg daily. CODE STATUS: The patient is full code. Power of assistant attorney general is her daughter, Ms. Natali Ling, number to reach her is [phone]. REVIEW OF SYSTEMS: CONSTITUTIONAL: Negative for weight loss or gain, ability to conduct usual activities. SKIN: Negative for rash, itching. EYES: Negative for double vision, pain. ENT/MOUTH: Negative for neck stiffness, pain, tenderness. CARDIOVASCULAR: Negative for palpitations, dyspnea on exertion, orthopnea. RESPIRATORY: Negative for shortness of breath, wheezing, cough, hemoptysis, fever or night sweats. GASTROINTESTINAL: Negative for poor appetite, abdominal pain, heartburn, nausea, vomiting, constipation, or diarrhea. GENITOURINARY: Negative for urgency, frequency, dysuria, nocturia. MUSCULOSKELETAL: Negative for pain, swelling. NEUROLOGIC/PSYCHIATRIC: Negative for anxiety, depression. ALLERGY/IMMUNOLOGIC: Negative for skin rash. PHYSICAL EXAMINATION: GENERAL: The patient is an 88-year-old female, who is currently not in any acute distress. VITAL SIGNS: Blood pressure 106/60, pulse 90 per minute, respiratory rate 18 per minute, saturating 99% on room air, temperature is 98.3 degrees Fahrenheit. NECK: Supple. No elevated JVD. EYES: Extraocular muscles intact. Pupils reacting to light. ORAL CAVITY: Mucous membranes are dry. No exudates or congestion. CARDIOVASCULAR SYSTEM: S1 and S2 heard. Irregular rhythm. RESPIRATORY SYSTEM: Air entry 1+ bilateral. Scattered rales plus in the infrascapular area. ABDOMEN: Soft. Bowel sounds heard. No tenderness, rigidity, or guarding. EXTREMITIES: Mild peripheral edema. No calf tenderness. VASCULAR SYSTEM: Peripheral pulses 1+ bilateral. No ischemic ulcers or gangrene. CENTRAL NERVOUS SYSTEM: No gross focal deficits noted. The patient is hard of hearing. Otherwise, moves all 4 extremities. PSYCHIATRIC SYSTEM: The patient's mood is euthymic. No hallucinations or delusions. LABORATORY DATA: White count of 4.3, hemoglobin and hematocrit of 7 and 21, platelet count 127, and MCV is 88. PT/INR 70 and 8.6 and PTT 53. BUN 27, creatinine 1.0, serum bicarb 22, and serum glucose 146. Troponin x3 is negative. Liver enzymes within normal limits. Albumin is 3.8. Stool occult blood x1 is negative. Chest x-ray done shows no acute abnormality. EKG done shows AFib with RVR at 117 beats per minute. There is T-inversion seen in the lateral wall. CLINICAL IMPRESSION AND PLAN: The patient will be admitted to telemetry for acute blood loss anemia with coagulopathy, atrial fibrillation with rapid ventricular response. The patient has received a unit of packed cell and vitamin K in the ER. We will obtain CBC in the morning. The patient has had a drug-eluting stent placed in September and needs aspirin and Plavix, hence we will continue with close monitoring of her hemoglobin. She is currently on Cardizem drip at 5 mg an hour and we will continue the same. We will also continue her Lopressor 25 mg twice daily, Synthroid, Imdur extended release, Pravachol, CoQ10 as before. We will obtain cardiology consultation with Dr. Dugan, her primary electrical power engineer. We will closely monitor her for any bleeding with elevated INR. Her baseline hemoglobin is around 12 g and currently it is around 7 g. She has received a unit of blood and we will obtain a hemoglobin in the morning. We will continue to closely monitor her on telemetry. Job ID: [id number]
[2018-11-29] MEDS ORDERED: Pravastatin Sodium 40 MG TAB PO SCH (21:00)
[2018-11-29] MEDS: Metoprolol Tartrate 25 MG TAB PO SCH (21:30)
[2018-11-30 05:21] LABS: INR-International Normal Ratio 1.7; PTT 22.9 SEC (22.9-36.1)
[2018-11-30 05:24] LABS: #Eosinphils 0.1 thou/uL (0.0-0.7); #Lymphocytes 1.1 thou/uL (1.20-3.40); #Monocytes 0.3 thou/uL (0.11-0.59); #Neutrophils 2.7 thou/uL (1.40-6.50); %Basophils 1.1 % (0.0-1.0); %Eosinophils 2.3 % (0.0-10.0); %Lymphocytes 25.9 % (21.0-51.0); %Monocytes 7.5 % (0.0-10.0); %Neutrophils 63.2 % (42.0-75.0); Hemoglobin 8.3 g/dL (12.0-16.0); Mean Corpuscular HGB CONC 33.6 g/dL (32.0-36.0); Mean Corpuscular Hemoglobin 31.4 pg (27.0-31.0); Mean Corpuscular Volume 93.3 fL (78.0-98.0); Platelet Count 117 thou/uL (130-400); Red Blood Cell (RBC) Count 2.65 mill/uL (4.20-5.40); White Blood Cell (WBC) Count 4.2 thou/uL (4.8-10.8)
[2018-11-30 05:34] LABS: Anion Gap 10 mmol/L (10-20); BUN (Urea Nitrogen) 20 mg/dL (9.8-20.1); Calc. Creatinine Clearance 50 mL/min (70-130); Calcium 8.6 mg/dL (7.8-10.44); Carbon Dioxide 22 mmol/L (23-31); Chloride 110 mmol/L (98-107); Estimated GFR-MDRD 72; Glucose 92 mg/dL (83-110); Potassium 4.4 mmol/L (3.5-5.1); Sodium 138 mmol/L (136-145)
[2018-11-30] MEDS ORDERED: Levothyroxine Sodium 100 MCG TAB PO SCH (06:00)
--- NOTE | 2018-11-30 06:26 | PDOC.CPN ---
- Subjective Date: 11/30/18 Time: 10:15 Interval history: No spefici complaints today. Feels much better HB improved to 8.3 - Objective Allergies/Adverse Reactions: Allergies Allergy/AdvReac Type Severity Reaction Status Date / Time atorvastatin Allergy Verified 11/29/18 08:30 ciprofloxacin [From Cipro] Allergy Verified 11/29/18 08:30 doxycycline Allergy Verified 11/29/18 08:30 Iodinated Contrast Media Allergy Rash Verified 11/29/18 08:30 Penicillins Allergy Verified 11/29/18 08:30 Visit Medications: Current Medications Acetaminophen (Tylenol) 650 mg PO Q4H PRN PRN Reason: Headache/Fever/Mild Pain (1-3) Acetaminophen/Codeine Phosphate (Tylenol #3) 1 tab PO Q4H PRN PRN Reason: Moderate Pain (4-6) Aspirin (Ecotrin) 81 mg PO DAILY [facility] Bisacodyl (Dulcolax) 10 mg [place] DAILYPRN PRN PRN Reason: Constipation Clopidogrel Bisulfate (Plavix) 75 mg PO DAILY [facility] Coenzyme Q10 (Coenzyme Q10) 100 mg PO DAILY [facility] Guaifenesin/Dextromethorphan (Robitussin Dm) 15 ml PO Q4H PRN PRN Reason: Cough Diltiazem HCl 125 mg/ Sodium (Chloride) 125 mls @ 5 mls/hr IVPB INF [facility]; Protocol Last Admin: 11/29/18 08:00 Dose: 125 mls Isosorbide Mononitrate (Imdur Er) 15 mg PO DAILY [facility] Levothyroxine Sodium (Synthroid) 100 mcg PO 0600 [facility] Last Admin: 11/30/18 06:02 Dose: 100 mcg Metoprolol Tartrate (Lopressor) 25 mg PO BID [facility] Last Admin: 11/29/18 21:30 Dose: 25 mg Pantoprazole Sodium (Protonix) 40 mg PO DAILY [facility] Pravastatin Sodium (Pravachol) 40 mg PO HS [facility] Last Admin: 11/29/18 21:30 Dose: 40 mg Senna/Docusate Sodium (Senokot S) 2 tab PO BIDPRN PRN PRN Reason: Constipation Vital Signs & Weight: Vital Signs Temp Pulse Resp BP Pulse Ox 11/30/18 03:36 98.2 F 60 18 115/56 L 95 11/29/18 19:34 98.0 F 82 18 136/63 98 11/29/18 19:16 98.4 F 75 17 114/54 L 99 Weight 132 lb 1.6 oz - Physical Exam General: alert & oriented x3 Neck: supple neck Cardiac: regular rate and rhythm, no murmur Lungs: clear to auscultation Neuro: grossly intact Abdomen: soft Musculoskeletal: no pain - Labs Result Diagrams: 11/30/18 05:03 11/30/18 05:03 Troponin/CKMB Troponin I Less than 0.010 ng/mL (< 0.028) 11/29/18 10:53 - Assessment/Plan Assessment/Plan: Anemia Afib CAD s/p stent S/p CABG Previous recommendation was to stop ASA when INR increased above 2.0 Given that coumadin is stopped, continue ASA, plavix (recent stent) When source of bleeding know and treated, recommend coumadin to INR of 2-3 Would dc ASA and continue plavix once INR >2.0 I will be out of the office over the next four days. Please call MD telephone clerk telegraph office if questions arise Pt to fu with Dr. Lim
--- NOTE | 2018-11-30 07:07 | CON ---
DATE OF CONSULTATION: REASON FOR CONSULTATION: Atrial fibrillation. HISTORY OF PRESENT ILLNESS: Ms. Edwards is an 88-year-old woman who is a patient of Dr. Darek Lim. She states she has had profound weakness. Her daughter or granddaughter states she had difficulty getting her up. They proceed to the emergency room, where she was found to be in AFIB with RVR. Upon my visit, she has converted back to sinus rhythm. She also had anemia with a hemoglobin of 7.2. She is currently on aspirin, Plavix, and Coumadin. She is on aspirin and Plavix for recent stent placement in addition to Coumadin for paroxysmal atrial fibrillation. PAST MEDICAL HISTORY: Atrial fibrillation, CAD, status post stent placement, hypertension, previous bypass surgery, hyperlipidemia. FAMILY HISTORY: Positive for CAD. ALLERGIES: IODINE, PENICILLIN, ATORVASTATIN, CIPRO. HOME MEDICATIONS: Fosamax, Lasix, Imdur, Synthroid, metoprolol, pravastatin, CoQ10, Coumadin, aspirin, Plavix. REVIEW OF SYSTEMS: A 10-point review of systems is reviewed as above, otherwise negative. PHYSICAL EXAMINATION: GENERAL: Patient is a pleasant female who is in no acute distress. The patient appears their stated age. VITAL SIGNS: Blood pressure /51, pulse 90, temp 98. NEUROLOGIC: The patient is alert and oriented x3 with no focal neurologic deficits. HEENT: Sclerae without icterus. Mouth has moist mucous membranes with normal pallor. NECK: No JVD. Carotid upstroke brisk. No bruits bilaterally. LUNGS: Clear to auscultation with unlabored respirations. BACK: No scoliosis or kyphosis. CARDIAC: Regular rate and rhythm with normal S1 and S2. No S3 or S4 noted. No significant rubs, murmurs, thrills, or gallops noted throughout the precordium. PMI is not displaced. There is no parasternal heave. ABDOMEN: Soft, nontender, nondistended. No peritoneal signs present. No hepatosplenomegaly. No abnormal striae. EXTREMITIES: 2+ femoral and 2+ dorsalis pedis pulses. No cyanosis, clubbing, or edema. SKIN: No gross abnormalities. PERTINENT LABORATORY DATA: Hemoglobin as above. Creatinine 1.0. IMPRESSION: 1. Atrial fibrillation with rapid ventricular response. 2. Coronary artery disease. 3. Status post stent placement. 4. Weakness. 5. Status post bypass surgery. RECOMMENDATIONS: Ms. Edwards did have a stent implantation in September. I did speak with Dr. Darek Lim at that time. The plan was to proceed with stopping aspirin once her INR was between 2 and 3. She was also continued Plavix. At some point, the aspirin was continued. From a CV standpoint, we will and Coumadin. May need a GI workup for low hemoglobin. Otherwise, given that she is in sinus rhythm we will continue current therapy. Job ID: [id number]
[2018-11-30 08:05] VITALS: TEMP 98.3
[2018-11-30] MEDS ORDERED: Clopidogrel Bisulfate 75 MG TAB PO SCH (09:00)
[2018-11-30] MEDS ORDERED: Aspirin 81 mg Enteric Coated Tablet PO SCH (09:00)
[2018-11-30] MEDS ORDERED: Ubidecarenone 50 MG CAP PO SCH (09:00)
[2018-11-30] MEDS ORDERED: Isosorbide Mononitrate (ER) 30 MG TAB PO SCH (09:00)
[2018-11-30] MEDS: Metoprolol Tartrate 25 MG TAB PO SCH (09:51)
--- NOTE | 2018-11-30 12:28 | PDOC.HOSPP ---
- Subjective Encounter Date: 11/30/18 Encounter Time: 10:15 Subjective: no chest pain or sob or palp is amb in room - Objective Vital Signs & Weight: Vital Signs (12 hours) Temp Pulse Resp BP Pulse Ox 11/30/18 08:03 98.3 F 61 18 134/60 95 11/30/18 08:00 95 11/30/18 03:36 98.2 F 60 18 115/56 L 95 Weight Weight 132 lb 1.6 oz I&O: 11/29/18 11/30/18 12/01/18 06:59 06:59 06:59 Intake Total 1065 Output Total 1900 Balance -835 Result Diagrams: 11/30/18 05:03 11/30/18 05:03 Hospitalist ROS - Medication Medications: Active Medications Generic Name Dose Route Start Last Admin Trade Name Freq PRN Reason Stop Dose Admin Aspirin 81 mg 11/30/18 09:00 11/30/18 09:50 Ecotrin PO 81 mg DAILY [facility] Administration Clopidogrel Bisulfate 75 mg 11/30/18 09:00 11/30/18 09:50 Plavix PO 75 mg DAILY [facility] Administration Coenzyme Q10 100 mg 11/30/18 09:00 11/30/18 09:49 Coenzyme Q10 PO 100 mg DAILY [facility] Administration Diltiazem HCl 125 mg/ Sodium 125 mls @ 5 mls/hr 11/29/18 12:00 11/29/18 08:00 Chloride IVPB 125 mls INF [facility] Administration Protocol 5 MG/HR Isosorbide Mononitrate 15 mg 11/30/18 09:00 11/30/18 09:50 Imdur Er PO 15 mg DAILY [facility] Administration Levothyroxine Sodium 100 mcg 11/30/18 06:00 11/30/18 06:02 Synthroid PO 100 mcg 0600 [facility] Administration Metoprolol Tartrate 25 mg 11/29/18 21:00 11/30/18 09:51 Lopressor PO 25 mg BID [facility] Administration Pantoprazole Sodium 40 mg 11/30/18 09:00 11/30/18 09:50 Protonix PO 40 mg DAILY [facility] Administration Pravastatin Sodium 40 mg 11/29/18 21:00 11/29/18 21:30 Pravachol PO 40 mg HS [facility] Administration - Exam General Appearance: NAD, awake alert Eye: PERRL, anicteric sclera ENT: no oropharyngeal lesions, moist mucosa Neck: supple, no JVD Heart: RRR, no murmur Respiratory: no wheezes, no rales Gastrointestinal: soft, non-tender, non-distended, normal bowel sounds Extremities: no cyanosis, no edema Neurological: cranial nerve grossly intact, no focal deficits Psychiatric: normal affect, A&O x 3 Hosp A/P (1) Atrial fibrillation with RVR Code(s): I48.91 - UNSPECIFIED ATRIAL FIBRILLATION Status: Acute (2) Coagulopathy Status: Acute (3) Acute blood loss anemia Code(s): D62 - ACUTE POSTHEMORRHAGIC ANEMIA Status: Acute (4) HTN (hypertension) Code(s): I10 - ESSENTIAL (PRIMARY) HYPERTENSION Status: Chronic Qualifiers: Hypertension type: essential hypertension Qualified Code(s): I10 - Essential (primary) hypertension (5) CAD (coronary artery disease) Code(s): I25.10 - ATHSCL HEART DISEASE OF [place] CORONARY ARTERY W/O ANG PCTRS Status: Chronic Qualifiers: Coronary Disease-Associated Artery/Lesion type: unga artery [place] vs. transplanted heart: unga heart (6) Hypothyroidism Code(s): E03.9 - HYPOTHYROIDISM, UNSPECIFIED Status: Chronic Qualifiers: Hypothyroidism type: unspecified Qualified Code(s): E03.9 - Hypothyroidism , unspecified - Plan inr is 1.7 this am from 8 on arrival Hb around 8g after 1 u prbc no bleeding anywhere now, had epistaxis prior to arrival continue asp, plavix, pravachol, imdur, lopressor and synthroid d/w , is ok for dc. To f/u with in 2 weeks. to start eliquis from 12/08/2018 and discontinue aspirin but continue plavix with eliquis. d/w daughter and patient at bedside cbc on to come to nearest ER if she starts bleeding again.
[2018-11-30 13:16] VITALS: BP 128/58
--- NOTE | 2018-11-30 16:05 | DIS ---
DATE OF ADMISSION: 11/29/2018 DATE OF DISCHARGE: 11/30/2018 DISCHARGE DISPOSITION: Home. PRIMARY DISCHARGE DIAGNOSES: Coagulopathy with acute blood loss anemia secondary to Coumadin use, resolved; epistaxis prior to arrival, resolved; atrial fibrillation with rapid ventricular response is in sinus rhythm; coronary artery disease with prior stent; and hypothyroidism. PROCEDURES DONE DURING HOSPITALIZATION: Chest x-ray done showed no acute abnormality. Hemoglobin and hematocrit on arrival 7 and 21. Discharge hemoglobin and hematocrit of 8.3 and 24.8 after 1 unit of packed cell. INR 8.6 on arrival and 1.7 on discharge. BUN 20, creatinine 0.7 this morning. Troponin x3 negative. Albumin is 3.8. DISCHARGE MEDICATIONS: 1. Fosamax 70 mg p.o. once weekly. 2. Lasix 20 mg daily. 3. Imdur extended release 15 mg p.o. daily. 4. Synthroid 100 mcg p.o. daily. 5. Lopressor 25 mg twice daily. 6. Pravastatin 40 mg p.o. at bedtime. 7. CoQ10 of 100 mg p.o. daily. 8. Aspirin 81 mg p.o. daily. Please note, this needs to be stopped from 08 of December. 9. Plavix 75 mg p.o. daily. 10. Ferrous sulfate 325 mg p.o. daily. 11. Eliquis 2.5 mg p.o. twice daily to be started from 12/08/2018. ALLERGIES: ATORVASTATIN, CIPROFLOXACIN, DOXYCYCLINE, IODINE, AND PENICILLIN. INPATIENT CONSULT: Dr. Dugan for Cardiology. DISCHARGE PLAN: The patient to follow up with Dr. Leger in 1 week. She also needs to follow up with Dr. Darek Lim, her safe expert in 2 weeks. CBC on 12/04/2018. The results will be faxed to Dr. Leger's office. BRIEF COURSE DURING HOSPITALIZATION: The patient initially came in with complaints of feeling dizzy and not feeling good. She had epistaxis with postnasal bleed from last 2 days prior to arrival. On arrival, the patient had her INR of 8.6 and hemoglobin of 7. She was given a unit of packed cell and vitamin K in the ER. She was also in atrial fibrillation with RVR and was on Cardizem drip. She has had consultation with Dr. Dugan during the brief stay here. The patient's INR dramatically changed to 1.7 this morning. Her hemoglobin is 8.3 this morning. She is not bleeding anywhere including her nose. Ms. Edwards is ambulating in the room. Her Cardizem was discontinued early this morning. She is maintaining sinus rhythm at the time of discharge. The patient needs to follow up with Dr. Lim, her safe expert in 2 weeks. She was also placed on Eliquis,but she needs to start from the 08 of December. Currently, she needs to continue aspirin and Plavix until the 08 of December. From , the patient needs to discontinue her aspirin totally. She needs to continue Eliquis and Plavix from 08 of December. Lab work for CBC needs to be done on the of this month. The results will be faxed to Dr. Leger for any changes in her hemoglobin. Iron prescriptions have been given for her. She is otherwise hemodynamically stable and has been cleared by Cardiology for discharge. Please see a [id number] documentation for the day of discharge on [employer]. Job ID: [id number]
== END 2018-11-30 15:50 | disposition home or self-care (01) | DRG 812 ==
LOC: ERS 03:31 → ERHOLD 05:53 → 2NO 07:46
PROVIDERS: ADMIT Hospitalist; ATTEND Hospitalist
DX: D62 Acute posthemorrhagic anemia (principal); R79.1 Abnormal coagulation profile; T45.515A Adverse effect of anticoagulants, initial encounter; I48.2 Chronic atrial fibrillation; I25.10 Atherosclerotic heart disease of native coronary artery without angina pectoris; I11.9 Hypertensive heart disease without heart failure; E78.5 Hyperlipidemia, unspecified; E03.9 Hypothyroidism, unspecified; R04.0 Epistaxis; Z88.0 Allergy status to penicillin; Z95.1 Presence of aortocoronary bypass graft; Z88.1 Allergy status to other antibiotic agents; Z88.8 Allergy status to other drugs, medicaments and biological substances; Z79.01 Long term (current) use of anticoagulants; Z79.82 Long term (current) use of aspirin; Z79.899 Other long term (current) drug therapy; Z95.5 Presence of coronary angioplasty implant and graft
CPT/HCPCS: 36415; 36430; 71045; 80048; 80053; 82274; 84484; 85025; 85610; 85730; 86850; 86900; 86901; 93005; 96365; 96366; J3430; P9016

== ENCOUNTER 2021-03-17 02:55 | Emergency (ER) | payer MEDICARE ==
[2021-03-17 04:27] LABS: #Lymphocytes 1.5 thou/uL (1.20-3.40); #Monocytes 0.5 thou/uL (0.11-0.59); %Basophils 0.8 % (0.0-1.0); %Eosinophils 0.3 % (0.0-10.0); %Lymphocytes 24.3 % (21.0-51.0); %Monocytes 7.6 % (0.0-10.0); Hemoglobin 14.1 g/dL (12.0-16.0); Mean Corpuscular HGB CONC 34.4 g/dL (32.0-36.0); Mean Corpuscular Volume 89.9 fL (78.0-98.0); Mean Platelet Volume 9.6 fL (7.4-10.4); Platelet Count 117 thou/uL (130-400); RBC Distribution Width 12.2 % (11.5-14.5); Red Blood Cell (RBC) Count 4.54 mill/uL (4.20-5.40)
[2021-03-17 04:51] LABS: ALT (SGPT) 15 U/L (8-55); AST (SGOT) 27 U/L (5-34); Albumin 3.8 g/dL (3.4-4.8); Alkaline Phosphatase 75 U/L (40-110); Anion Gap 16 mmol/L (10-20); BUN (Urea Nitrogen) 21 mg/dL (9.8-20.1); Bilirubin, Total 0.7 mg/dL (0.2-1.2); Calc. Creatinine Clearance 0 mL/min (70-130); Calcium 9.5 mg/dL (7.8-10.44); Carbon Dioxide 24 mmol/L (23-31); Chloride 99 mmol/L (98-107); Globulin 2.9 g/dL (2.4-3.5); Glucose 117 mg/dL (83-110); Lipase 32 U/L (8-78); Magnesium 1.8 mg/dL (1.6-2.6); Potassium 3.6 mmol/L (3.5-5.1); Protein, Total 6.7 g/dL (5.8-8.1); Sodium 135 mmol/L (136-145)
[2021-03-17 05:20] LABS: Bacteria/HPF None Seen HPF (None Seen); Bilirubin Negative (Negative); Blood, Urine Negative (Negative); Clarity Clear (Clear); Glucose, Urine (Dipstick) Normal (Negative); Ketone, Urine Negative (Negative); Leukocyte Negative Leu/uL (Negative); Mucous/LPF Rare LPF (<2+); Nitrite Negative (Negative); Protein, Urine (Dipstick) 30 mg/dL (Neg-Trace); RBC/HPF 0-3 HPF (0-3); Squamous Epithelial 0-3 HPF (0-3); Urobilinogen Normal mg/dL (Less than 2); pH, Urine 5.5 (5.0-9.0)
[2021-03-17] MEDS ORDERED: Lidocaine Viscous Sol 2% 15 ml UD Cup ONE (05:53)
== END 2021-03-17 06:28 | disposition home or self-care (01) ==
LOC: ERS 02:55
DX: J02.9 Acute pharyngitis, unspecified (principal); B34.9 Viral infection, unspecified; E86.0 Dehydration; I48.91 Unspecified atrial fibrillation; I25.2 Old myocardial infarction; I10 Essential (primary) hypertension
CPT/HCPCS: 36416; 51701; 71045; 74176; 80053; 81003; 81015; 83605; 83690; 83735; 84100; 85025; 93005